=== PATIENT | female | born 1960 | race Caucasian/White ===

== ENCOUNTER 2018-01-31 00:12 | Emergency (ER) | payer OTHER, BC ==
[~2018-01-31] VITALS: Ht 160 cm; Wt 79.8 kg
[~2018-01-31 00:12] MED LIST: Armour Thyroid90 MG; ESTMED1.5T PO; FAMO20 PO; LEVSOD100 PO; PRED20 PO
[2018-02-01 06:14] LABS: HIV SCREEN 4TH GENERATION WRFX Non Reactive (Non Reactive)
[2018-02-01 08:34] LABS: HCV ANTIBODY <0.1 (0.0-0.9)
== END 2018-01-31 01:20 | disposition home or self-care (01) ==
LOC: ER 00:12
PROVIDERS: Emergency Medicine
DX: S61.233A Puncture wound without foreign body of left middle finger without damage to nail, initial encounter (principal); W46.0XXA Contact with hypodermic needle, initial encounter; Z79.899 Other long term (current) drug therapy; E03.9 Hypothyroidism, unspecified; Z87.891 Personal history of nicotine dependence
CPT/HCPCS: 84460; 86317; 86703; 86803; 87340; 87389; 99283

== ENCOUNTER 2018-08-16 06:39 | Day surgery (SDC) | payer BC ==
[~2018-08-16] VITALS: Ht 160 cm; Wt 76.5 kg
[2018-08-16] MEDS ORDERED: LIOT5 (07:20)
== END 2018-08-16 09:08 | disposition home or self-care (01) ==
LOC: ORSCSDS 06:39
PROVIDERS: Internal Medicine Gastroenterology
PROC: 0DBM8ZX Excision of Descending Colon, Via Natural or Artificial Opening Endoscopic, Diagnostic (ICD-10-PCS; principal; 2018-08-16 08:00)
PROC: 0DB68ZX Excision of Stomach, Via Natural or Artificial Opening Endoscopic, Diagnostic (ICD-10-PCS; principal; 2018-08-16 08:00)
DX: Z12.11 Encounter for screening for malignant neoplasm of colon (principal); Z86.010 Personal history of colon polyps; K25.9 Gastric ulcer, unspecified as acute or chronic, without hemorrhage or perforation; K44.9 Diaphragmatic hernia without obstruction or gangrene; F32.9 Major depressive disorder, single episode, unspecified; E03.9 Hypothyroidism, unspecified; Z80.0 Family history of malignant neoplasm of digestive organs; Z87.891 Personal history of nicotine dependence; Z79.899 Other long term (current) drug therapy
CPT/HCPCS: 88305; 88342; J0330; J1980; J2405; J7120